=== PATIENT | female | born 1960 | race Caucasian/White ===

== ENCOUNTER 2023-11-04 02:30 | Emergency (ER) | payer MEDICARE, OTHER ==
--- NOTE | 2023-11-04 02:31 | ED Physician Documentation ---
PD HPI FEMALE - Stated complaint Stated Complaint: - Chief complaint Chief Complaint: Abd Pain - History obtained from History obtained from: Patient - Additional information Additional information: HPI from patient. Patient complains of urinary frequency, burning dysuria, and sensation of incomplete voiding. Patient says she has had similar symptoms every few years associated with urinary tract infections. The symptoms began earlier tonight. She denies fever, denies abdominal pain per se (has suprapubic discomfort when urinating). Review of Systems Constitutional: denies: Fever GI: denies: Abdominal Pain, Nausea, Vomiting : reports: Dysuria, Frequency PD PAST MEDICAL HISTORY - Past Medical History Past Medical History: Yes Cardiovascular: Atrial fibrillation Endocrine/Autoimmune: HyPOthyroidism - Present Medications Home Medications: Ambulatory Orders Medication Instructions Recorded Confirmed Atenolol [Tenormin] 50 mg PO DAILY 11/04/23 11/04/23 Flecainide [Tambocar] 50 mg PO DAILY 11/04/23 11/04/23 Levothyroxine Sodium [Levo-T] 50 mcg PO DAILY 11/04/23 11/04/23 Nitrofurantoin [Macrobid] 100 mg PO BID #10 cap 11/04/23 Phenazopyridine HCl [Pyridium] 200 mg PO TID PRN #6 tablet 11/04/23 Tamsulosin [Flomax] 1 cap PO DAILY 11/04/23 11/04/23 - Allergies Allergies/Adverse Reactions: Allergies Allergy/AdvReac Type Severity Reaction Status Date / Time No Known Drug Allergies Allergy Verified 11/04/23 02:45 PD ED PE NORMAL - Vitals Vital signs reviewed: Yes - General General: Alert and oriented X 3, No acute distress, Well developed/nourished - Abdomen Abdomen: Soft, Non tender - Back Back: No CVA TTP Results - Vitals Vitals: Vital Signs - 24 hr 11/04/23 02:31 Temperature 36.1 C L Heart Rate 63 Respiratory 16 Rate Blood Pressure 107/74 O2 Saturation 100 Oxygen O2 Source Room air - Labs Labs: Laboratory Tests 11/04/23 02:37 Urine Color YELLOW Urine Clarity CLEAR Urine pH 6.0 Ur Specific [place] <=1.005 Urine Protein NEGATIVE Urine Glucose (UA) NEGATIVE Urine Ketones NEGATIVE Urine Occult Blood MODERATE H Urine Nitrite NEGATIVE Urine Bilirubin NEGATIVE Urine Urobilinogen 0.2 (NORMAL) Ur Leukocyte Esterase LARGE H Urine RBC 6-10 H Urine WBC >25 H Ur Squamous Epith Cells NONE SEEN Urine Bacteria Few Urine Mucus Moderate Strands Ur Microscopic Review INDICATED Urine Culture Comments INDICATED PD Medical Decision Making - ED course Complexity details: reviewed results, considered differential, d/w patient ED course: Presents with symptoms consistent with UTI, and results of urinalysis support this diagnosis. She is given nitrofurantoin 100 mg p.o. as well as 100 mg Pyridium, and these medications are electronically submitted to the [facility] in [place]. Return precautions reviewed. Departure - Departure Disposition: Home, Self Care Clinical Impression: Urinary tract infection Qualifiers: Urinary tract infection type: acute cystitis Hematuria presence: with hematuria Qualified Code(s): N30.01 - Acute cystitis with hematuria Condition: Good Instructions: ED UTI Cystitis Female Prescriptions: Nitrofurantoin [Macrobid] 100 mg PO BID #10 cap Phenazopyridine HCl [Pyridium] 200 mg PO TID PRN #6 tablet PRN Reason: dysuria Comments: Your urinalysis result is consistent with a urinary tract infection. You were given the first dose of an antibiotic (nitrofurantoin) in the emergency department, and I have electronically submitted a prescription for a 5-day course of this antibiotic to the [facility] pharmacy in [place]. You were also given the first dose of Pyridium (medication that can help with symptoms of UTI), and I have submitted a 2-day course of this medication to the [facility] pharmacy, as well.
[2023-11-04 02:46] LABS: BILIRUBIN,URINE NEGATIVE (NEGATIVE); GLUCOSE, URINE (UA) NEGATIVE (NEGATIVE); KETONES,URINE (UA) NEGATIVE (NEGATIVE); LEUKOCYTE ESTERASE, URINE LARGE (NEGATIVE); NITRITE,URINE NEGATIVE (NEGATIVE); OCCULT BLOOD,URINE MODERATE (NEGATIVE); PROTEIN,URINE NEGATIVE (NEGATIVE); UROBILINOGEN,URINE 0.2 (NORMAL) E.U./dL (NORMAL)
[2023-11-04 02:47] LABS: CLARITY,URINE CLEAR (CLEAR)
[2023-11-04 02:53] VITALS: BP 107/74; O2SAT 100
[2023-11-04] MEDS: NITROFURANTOIN MACRO 100 MG CAPSULE PO STA (03:01)
[2023-11-04] MEDS: PHENAZOPYRIDINE 100 MG TABLET PO STA (03:01)
[2023-11-04 03:04] LABS: WBC,URINE >25 /HPF (0-5)
[2023-11-04 03:05] LABS: BACTERIA,URINE Few /HPF (None Seen); MUCUS,URINE Moderate Strands; SQUAMOUS EPITHELIAL CELL,UR NONE SEEN (<= Few)
== END 2023-11-04 03:10 | disposition home or self-care (01) ==
LOC: EDBD → ED 02:30
DX: N30.01 Acute cystitis with hematuria (principal); I48.91 Unspecified atrial fibrillation; E03.9 Hypothyroidism, unspecified; Z79.899 Other long term (current) drug therapy
CPT/HCPCS: 81001; 87086; 99283; A9270; 81003